=== PATIENT | male | born 1990 | race Hispanic/Latino ===

== ENCOUNTER 2019-09-29 14:32 | Emergency (ER) | payer MEDICAID, OTHER ==
[2019-09-29 15:42] LABS: BASOPHILS % (AUTO) 0.5 % (0.0-5.0); HEMATOCRIT 47.2 % (42-54); LYMPHOCYTES % (AUTO) 19.4 % (21.0-51.0); MEAN CORPUSCULAR HEMOGLOBIN 28.8 pg (27.0-33.0); MEAN CORPUSCULAR HGB CONC 34.5 g/dL (32.0-36.0); MEAN CORPUSCULAR VOLUME 83.5 fL (79-99); NEUTROPHILS % (AUTO) 71.7 % (40.0-77.0); PLATELET COUNT (AUTO) 301 K/uL (130-400); RED BLOOD CELL COUNT(AUTO) 5.65 MIL/uL (4.50-6.20); RED CELL DISTRIBUTION WIDTH 12.3 % (11.0-15.5); WHITE BLOOD COUNT (AUTO) 10.9 K/uL (4.8-10.8)
[2019-09-29 15:45] LABS: POTASSIUM 4.1 mmol/L (3.5-5.1)
[2019-09-29 15:50] LABS: ALBUMIN 4.2 g/dL (3.5-5.0); BILIRUBIN,TOTAL 0.5 mg/dL (0.2-1.0); TOTAL PROTEIN, SERUM 8.2 g/dL (6.0-8.3)
[2019-09-29 16:25] LABS: APPEARANCE,URINE Clear (CLEAR); BILIRUBIN,URINE Negative (NEGATIVE); COLOR,URINE Yellow (YELLOW); GLUCOSE, URINE (UA) Negative (NEGATIVE); KETONES,URINE Negative (NEGATIVE); LEUKOCYTE ESTERASE ,URINE Negative (NEGATIVE); NITRATE,URINE Negative (NEGATIVE); OCCULT BLOOD,URINE Negative (NEGATIVE); PROTEIN,URINE Negative (NEGATIVE); UROBILINOGEN,URINE 0.2 mg/dL (0.2-1.0)
[2019-09-29 16:32] LABS: AMPHET/METH SCREEN,URINE NEGATIVE (NEGATIVE); BARBITURATE SCREEN, URINE NEGATIVE (NEGATIVE); BENZODIAZEPINES SCREEN,URINE NEGATIVE (NEGATIVE); CANNABINOID SCREEN,URINE NEGATIVE (NEGATIVE); COCAINE SCREEN,URINE NEGATIVE (NEGATIVE); OPIATE SCREEN,URINE NEGATIVE (NEGATIVE); PHENCYCLIDINE SCREEN,URINE NEGATIVE (NEGATIVE)
[2019-09-29] MEDS ORDERED: ONDANSETRON HCL 4 MG/2 ML VIAL ONE (16:35)
[2019-12-27] MEDS ORDERED: SERT25TA5 PO (18:28)
[2019-12-27] MEDS ORDERED: LISI-613 PO (18:28)
[2019-12-27] MEDS ORDERED: OMEP40CA13 PO (18:28)
[2019-12-27] MEDS ORDERED: PROP40TA7 PO (18:28)
[2019-12-27] MEDS ORDERED: ALPR0.5T8 PO (18:28)
[2019-12-27] MEDS ORDERED: ASPI-556 PO (18:28)
[2019-12-29] MEDS ORDERED: CLOP75TA14 PO (18:58)
== END 2019-09-29 18:32 | disposition home or self-care (01) ==
LOC: EDH 14:32
DX: R07.89 Other chest pain (principal); F41.1 Generalized anxiety disorder; I10 Essential (primary) hypertension; F41.9 Anxiety disorder, unspecified; Z87.891 Personal history of nicotine dependence; Z98.890 Other specified postprocedural states
CPT/HCPCS: 36415; 80053; 80305; 81003; 82550; 84484 ×2; 85025; 93005 ×2; 96374; 99285; J2405

== ENCOUNTER 2019-10-16 20:34 | Emergency (ER) | payer OTHER | END 2019-10-16 20:58 | disposition home or self-care (01) | LOC: EDH 20:34 | DX: S39.011A Strain of muscle, fascia and tendon of abdomen, initial encounter (principal); I10 Essential (primary) hypertension; F41.9 Anxiety disorder, unspecified; Z98.890 Other specified postprocedural states; X58.XXXA Exposure to other specified factors, initial encounter; Y93.89 Activity, other specified; Y92.89 Other specified places as the place of occurrence of the external cause; Y99.8 Other external cause status | CPT/HCPCS: 99282 ==

== ENCOUNTER 2019-12-17 06:54 | Emergency (ER) | payer OTHER ==
[2019-12-17] MEDS ORDERED: ASPIRIN 325 MG TABLET ONE (07:14)
== END 2019-12-17 09:53 | disposition home or self-care (01) ==
LOC: EDH 06:54
DX: M79.642 Pain in left hand (principal); R07.89 Other chest pain; Z20.828 Contact with and (suspected) exposure to other viral communicable diseases; I10 Essential (primary) hypertension; F41.9 Anxiety disorder, unspecified
CPT/HCPCS: 36415; 71045; 80053; 80305; 81001; 82550; 82728; 83605; 84145; 84484; 85025; 85378; 85610; 85730; 86140; 87088; 87804 ×2; 87880; 93005; 99285; U0003

== ENCOUNTER 2019-12-21 15:32 | Emergency (ER) | payer OTHER ==
[2019-12-21 17:05] LABS: BASOPHILS % (AUTO) 0.3 % (0.0-5.0); EOSINOPHILS % (AUTO) 0.6 % (0.0-8.0); HEMATOCRIT 42.3 % (42-54); LYMPHOCYTES % (AUTO) 17.3 % (21.0-51.0); MEAN CORPUSCULAR HEMOGLOBIN 28.5 pg (27.0-33.0); MEAN CORPUSCULAR VOLUME 83.8 fL (79-99); MONOCYTES % (AUTO) 6.8 % (3.0-13.0); NEUTROPHILS % (AUTO) 74.7 % (40.0-77.0); PLATELET COUNT (AUTO) 322 K/uL (130-400); RED BLOOD CELL COUNT(AUTO) 5.05 MIL/uL (4.50-6.20); RED CELL DISTRIBUTION WIDTH 12.8 % (11.0-15.5); WHITE BLOOD COUNT (AUTO) 12.1 K/uL (4.8-10.8)
[2019-12-21 17:24] LABS: POTASSIUM 3.8 mmol/L (3.5-5.1)
[2019-12-27] MEDS ORDERED: ASPI-556 PO (18:28)
[2019-12-27] MEDS ORDERED: PROP40TA7 PO (18:28)
[2019-12-27] MEDS ORDERED: ALPR0.5T8 PO (18:28)
[2019-12-27] MEDS ORDERED: OMEP40CA13 PO (18:28)
[2019-12-27] MEDS ORDERED: SERT25TA5 PO (18:28)
[2019-12-27] MEDS ORDERED: LISI-613 PO (18:28)
[2019-12-29] MEDS ORDERED: CLOP75TA14 PO (18:58)
== END 2019-12-21 18:05 | disposition home or self-care (01) ==
LOC: EDH 15:32
DX: R07.89 Other chest pain (principal); E11.9 Type 2 diabetes mellitus without complications; I10 Essential (primary) hypertension; Z87.891 Personal history of nicotine dependence
CPT/HCPCS: 36415; 80048; 84484; 85025; 93005

== ENCOUNTER 2019-12-25 11:34 | Emergency (ER) | payer OTHER ==
[2019-12-25] MEDS ORDERED: ASPIRIN 325 MG TABLET ONE (12:37)
[2019-12-25] MEDS ORDERED: ONDANSETRON HCL 4 MG/2 ML VIAL ONE (12:37)
== END 2019-12-25 14:00 | disposition home or self-care (01) ==
LOC: EDH 11:34
DX: F41.9 Anxiety disorder, unspecified (principal); R07.89 Other chest pain; I10 Essential (primary) hypertension
CPT/HCPCS: 36415; 71045; 80048; 80305; 81001; 83690; 84484; 85025; 93005; 96374; 99285; J2405

== ENCOUNTER 2019-12-26 10:06 | Inpatient (IN) | payer OTHER ==
[~2019-12-26] VITALS: Ht 180.3 cm; Wt 149.0 kg
[2019-12-26] MEDS ORDERED: IOHEXOL 350 MG/ML 100ML INFUS..BTL IV ONE (10:46)
[2019-12-26] MEDS ORDERED: ASPIRIN 325 MG TABLET ONE (11:19)
[2019-12-26] MEDS ORDERED: SODIUM CHLORIDE 0.9% 1000ML 1,000 ML IV ONE (11:20)
[2019-12-26 11:46] LABS: BASOPHILS % (AUTO) 0.4 % (0.0-5.0); EOSINOPHILS % (AUTO) 0.5 % (0.0-8.0); HEMATOCRIT 43.4 % (42-54); LYMPHOCYTES % (AUTO) 18.9 % (21.0-51.0); MEAN CORPUSCULAR HGB CONC 34.8 g/dL (32.0-36.0); MEAN CORPUSCULAR VOLUME 83.3 fL (79-99); MONOCYTES % (AUTO) 6.4 % (3.0-13.0); NEUTROPHILS % (AUTO) 73.4 % (40.0-77.0); PLATELET COUNT (AUTO) 302 K/uL (130-400); RED BLOOD CELL COUNT(AUTO) 5.21 MIL/uL (4.50-6.20); RED CELL DISTRIBUTION WIDTH 12.5 % (11.0-15.5); WHITE BLOOD COUNT (AUTO) 9.7 K/uL (4.8-10.8)
[2019-12-26 11:52] LABS: POTASSIUM 4.1 mmol/L (3.5-5.1)
[2019-12-26 11:56] LABS: ALBUMIN 4.2 g/dL (3.5-5.0); BILIRUBIN,TOTAL 0.5 mg/dL (0.2-1.0); TOTAL PROTEIN, SERUM 7.8 g/dL (6.0-8.3)
[2019-12-26 12:21] LABS: INR 0.99 (0.85-1.15); PARTIAL THROMBOPLASTIN TIME 30.6 SEC (26.3-35.5); PROTHROMBIN TIME 10.7 SEC (9.6-11.6)
[2019-12-26] MEDS ORDERED: ONDANSETRON HCL 4 MG/2 ML VIAL IVP PRN (15:45)
[2019-12-26] MEDS ORDERED: ACETAMINOPHEN 325 MG TAB PO PRN (15:45)
--- NOTE | 2019-12-26 18:30 | NUR ---
REPORT RECEIVED FROM GEENA RN (ER). PATIENT ADMITTED FOR POSSIBLE CVA DUE TO C/O CHEST PAIN, LEFT FACIAL, LEFT LEG AND LEFT ARM WEAKNESS. SOC DONE WITH RECOMMENDATIONS OF MRI OF THE BRAIN. MRI RESULTS NEGATIVE. NO CONSULTS, NEEDS SPEECH EVAL. PATIENT STABLE AT THIS TIME.
[2019-12-26 20:00] VITALS: BP 148/86
[2019-12-27 03:53] LABS: HEMOGLOBIN A1C 6.1 % (4.0-6.0)
--- NOTE | 2019-12-27 03:58 | NUR ---
PAGED MOISÉS CRAWFORD ABOUT PATIENT'S CHEST PAIN ON THE LEFT SIDE. PENDING CALL BACK.
[2019-12-27 04:00] VITALS: BP 113/62
[2019-12-27 04:07] LABS: BASOPHILS % (AUTO) 0.4 % (0.0-5.0); EOSINOPHILS % (AUTO) 1.5 % (0.0-8.0); HEMATOCRIT 40.1 % (42-54); LYMPHOCYTES % (AUTO) 32.3 % (21.0-51.0); MEAN CORPUSCULAR HEMOGLOBIN 28.7 pg (27.0-33.0); MEAN CORPUSCULAR HGB CONC 33.9 g/dL (32.0-36.0); MEAN CORPUSCULAR VOLUME 84.6 fL (79-99); MONOCYTES % (AUTO) 6.8 % (3.0-13.0); NEUTROPHILS % (AUTO) 58.7 % (40.0-77.0); PLATELET COUNT (AUTO) 279 K/uL (130-400); RED BLOOD CELL COUNT(AUTO) 4.74 MIL/uL (4.50-6.20); RED CELL DISTRIBUTION WIDTH 12.8 % (11.0-15.5); WHITE BLOOD COUNT (AUTO) 9.5 K/uL (4.8-10.8)
[2019-12-27 04:15] LABS: POTASSIUM 4.1 mmol/L (3.5-5.1)
[2019-12-27 04:19] LABS: ALBUMIN 3.8 g/dL (3.5-5.0); BILIRUBIN,TOTAL 0.5 mg/dL (0.2-1.0); TOTAL PROTEIN, SERUM 7.1 g/dL (6.0-8.3)
[2019-12-27] MEDS ORDERED: NITROGLYCERIN 1GM/1 INCH PACKET TD ONE (04:21)
[2019-12-27] MEDS ORDERED: NITROGLYCERIN 1GM/1 INCH PACKET TD SCH (04:30)
[2019-12-27 04:45] LABS: CREATINE KINASE, TOTAL 125 U/L (21-232); MYOGLOBIN 35 ng/mL (10-92); TROPONIN I < 0.04 ng/mL (0.00-0.06)
[2019-12-27] MEDS: NITROGLYCERIN 1GM/1 INCH PACKET TD SCH ×3 (06:00→19:24)
[2019-12-27] MEDS: ACETAMINOPHEN 325 MG TAB PO PRN ×2 (06:10→15:10)
[2019-12-27 07:44] LABS: INR 1.03 (0.85-1.15); PARTIAL THROMBOPLASTIN TIME 30.1 SEC (26.3-35.5); PROTHROMBIN TIME 11.1 SEC (9.6-11.6)
[2019-12-27 08:00] VITALS: BP 110/62
[2019-12-27] MEDS: ASPIRIN 81MG TAB.CHEW PO SCH (08:53)
[2019-12-27] MEDS: CLOPIDOGREL BISULFATE 75 MG TAB PO SCH (08:53)
[2019-12-27] MEDS: ENOXAPARIN SODIUM 40 MG/0.4 ML SYRINGE SQ SCH (08:54)
[2019-12-27 12:00] VITALS: BP 139/77
[2019-12-27 16:00] VITALS: BP 131/75
[2019-12-27] MEDS ORDERED: LISI-613 PO ×2 (18:28)
[2019-12-27] MEDS ORDERED: ALPR0.5T8 PO ×2 (18:28)
[2019-12-27] MEDS ORDERED: ASPI-556 PO ×2 (18:28)
[2019-12-27] MEDS ORDERED: PROP40TA7 PO ×2 (18:28)
[2019-12-27] MEDS ORDERED: SERT25TA5 PO ×2 (18:28)
[2019-12-27] MEDS ORDERED: OMEP40CA13 PO ×2 (18:28)
[2019-12-27] MEDS ORDERED: SIMETHICONE 80 MG TAB.CHEW PO PRN (18:30)
--- NOTE | 2019-12-27 18:46 | NUR ---
cm note met with patient and states resides at home with common law spouse, malinda. independent with adls/ambulation, no dme. dc plan is back to home at time of dc. states no dc needs. Addendum: 12/27/19 at 1849 by SADIE WORKMAN CM Amended: Links added.
[2019-12-27 19:40] VITALS: BP 141/83
[2019-12-27 23:27] VITALS: BP 139/79
[2019-12-28] MEDS: NITROGLYCERIN 1GM/1 INCH PACKET TD SCH ×3 (03:23→21:25)
[2019-12-28 03:30] VITALS: BP 142/88
[2019-12-28 03:59] LABS: BASOPHILS % (AUTO) 0.5 % (0.0-5.0); HEMATOCRIT 38.8 % (42-54); LYMPHOCYTES % (AUTO) 31.7 % (21.0-51.0); MEAN CORPUSCULAR HEMOGLOBIN 28.6 pg (27.0-33.0); MONOCYTES % (AUTO) 9.2 % (3.0-13.0); PLATELET COUNT (AUTO) 258 K/uL (130-400); RED BLOOD CELL COUNT(AUTO) 4.62 MIL/uL (4.50-6.20); RED CELL DISTRIBUTION WIDTH 12.9 % (11.0-15.5); WHITE BLOOD COUNT (AUTO) 9.7 K/uL (4.8-10.8)
[2019-12-28 04:14] LABS: CREATININE 1.1 mg/dL (0.5-1.5)
--- NOTE | 2019-12-28 06:36 | NUR ---
INFORMED N[employer] UTILITIES ENGINEER ABOUT PATIENT'S RECURRENT CHEST PAINS. HE ORDERED ANOTHER TROPONIN LEVEL THIS MORNING AND CBC/CMP FOR TOMORROW.
[2019-12-28 07:55] VITALS: BP 112/61
[2019-12-28] MEDS: CLOPIDOGREL BISULFATE 75 MG TAB PO SCH (08:57)
[2019-12-28] MEDS: ASPIRIN 81MG TAB.CHEW PO SCH (08:57)
[2019-12-28] MEDS: ENOXAPARIN SODIUM 40 MG/0.4 ML SYRINGE SQ SCH (08:59)
--- NOTE | 2019-12-28 10:00 | NUR ---
DYSPHAGIA EVAL COMPLETED. -S/S OF ASPIRATION. REGULAR TEXTURE, THIN LIQUIDS; PILLS WHOLE WITH LIQUIDS. Addendum: 12/28/19 at 1445 by NORI IZQUIERDO, [facility] Amended: Links added.
--- NOTE | 2019-12-28 10:20 | NUR ---
COGNITIVE-LINGUISTIC EVALUATION. WITHIN FUNCTIONAL LIMITS. EVALUATION: Pt AAOX3. Pt REQUESTS WANTS AND NEEDS INDEPENDENTLY. Pt INTELLIGIBLE AT 100% ACCURACY TO THE UNFAMILIAR LISTENER. Pt COMMUNICATING AT CONVERSATIONAL LEVEL WITH NO DEFICITS IDENTIFIED AT THIS TIME. Pt COMPLETED COGNITIVE-LINGUISTIC EVALUATION TARGETING: ORIENTATION, ATTENTION/CONCENTRATION, MEMORY (IMMEDIATE, SHORT-TERM AND LONG-TERM), PROBLEM SOLVING, LOGIC/REASONING/INFERENCE, THOUGHT ORGANIZATION, FUNCTIONAL MATH AND TELLING TIME. Pt ABLE TO COMPLETE TASKS WITH CORRECT AND TIMELY ANSWERS TO ALL SECTIONS. G-CODES SPOKEN LANGUAGE EXPRESSION: [id number] Addendum: 12/28/19 at 1448 by NORI IZQUIERDO [facility] Amended: Links added.
[2019-12-28 11:15] LABS: APPEARANCE,URINE Clear (CLEAR); BILIRUBIN,URINE Negative (NEGATIVE); COLOR,URINE Yellow (YELLOW); GLUCOSE, URINE (UA) Negative (NEGATIVE); KETONES,URINE Negative (NEGATIVE); LEUKOCYTE ESTERASE ,URINE Negative (NEGATIVE); NITRATE,URINE Negative (NEGATIVE); OCCULT BLOOD,URINE Negative (NEGATIVE); PH,URINE 5.5 (5.0-8.0); PROTEIN,URINE Negative (NEGATIVE)
[2019-12-28 11:23] LABS: AMPHET/METH SCREEN,URINE NEGATIVE (NEGATIVE); BARBITURATE SCREEN, URINE NEGATIVE (NEGATIVE); BENZODIAZEPINES SCREEN,URINE NEGATIVE (NEGATIVE); CANNABINOID SCREEN,URINE NEGATIVE (NEGATIVE); COCAINE SCREEN,URINE NEGATIVE (NEGATIVE); OPIATE SCREEN,URINE NEGATIVE (NEGATIVE); PHENCYCLIDINE SCREEN,URINE NEGATIVE (NEGATIVE)
[2019-12-28 11:37] VITALS: BP 116/63
--- NOTE | 2019-12-28 13:20 | NUR ---
2D-Echo Pending results spoke w/[employer] biometric fingerprinting technician. states Wesley has already notified [employer]line Reservation Agent aviation manager to read echo test.
--- NOTE | 2019-12-28 13:45 | NUR ---
SPOKE WITH DR. PIRES RE; 2D-ECHO PENDING STATES I HAVE CONSULTS AT THIS TIME, I WILL GLADLY READ IT LATER TODAY.
[2019-12-28 15:57] VITALS: BP 109/78
[2019-12-28 20:02] VITALS: BP 131/67
[2019-12-28] MEDS: ACETAMINOPHEN 325 MG TAB PO PRN (21:28)
[2019-12-28 23:16] VITALS: BP 122/65
[2019-12-29 04:13] VITALS: BP 126/73
[2019-12-29] MEDS: NITROGLYCERIN 1GM/1 INCH PACKET TD SCH ×2 (05:16→13:29)
[2019-12-29 05:58] LABS: BASOPHILS % (AUTO) 0.5 % (0.0-5.0); EOSINOPHILS % (AUTO) 2.2 % (0.0-8.0); HEMATOCRIT 39.7 % (42-54); LYMPHOCYTES % (AUTO) 28.6 % (21.0-51.0); MEAN CORPUSCULAR HEMOGLOBIN 29.1 pg (27.0-33.0); MEAN CORPUSCULAR VOLUME 85.6 fL (79-99); MONOCYTES % (AUTO) 9.1 % (3.0-13.0); NEUTROPHILS % (AUTO) 59.1 % (40.0-77.0); PLATELET COUNT (AUTO) 183 K/uL (130-400); RED BLOOD CELL COUNT(AUTO) 4.64 MIL/uL (4.50-6.20); RED CELL DISTRIBUTION WIDTH 12.9 % (11.0-15.5); WHITE BLOOD COUNT (AUTO) 8.2 K/uL (4.8-10.8)
[2019-12-29 06:28] LABS: POTASSIUM 4.6 mmol/L (3.5-5.1)
[2019-12-29 08:00] VITALS: BP 121/83
[2019-12-29] MEDS: CLOPIDOGREL BISULFATE 75 MG TAB PO SCH (08:19)
[2019-12-29] MEDS: ASPIRIN 81MG TAB.CHEW PO SCH (08:19)
[2019-12-29] MEDS: ENOXAPARIN SODIUM 40 MG/0.4 ML SYRINGE SQ SCH (08:20)
[2019-12-29 12:00] VITALS: BP 133/67
[2019-12-29 16:00] VITALS: BP 122/69
--- NOTE | 2019-12-29 16:03 | NUR ---
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 Pt also pending stress test (out pt as per Patient) and cardiac evaluation. RD provided nutritional handouts for Pt review. RD had long discussion with Pt about lifestyle, diet and strength training history. Pt also with physical PTSD as per Pt. RD encouraged Pt to notify as nutritional concerns arise. RD to follow up.
[2019-12-29] MEDS: ACETAMINOPHEN 325 MG TAB PO PRN (18:01)
[2019-12-29] MEDS ORDERED: CLOP75TA14 PO ×2 (18:58)
[2019-12-29 20:00] VITALS: BP 121/64
--- NOTE | 2019-12-29 20:30 | NUR ---
discharge PATIENT WAS DISCHARGED HOME VIA PRIVATE CAR. PATIENT ASSISTED DOWNSTAIRS VIA WHEEL CHAIR WITH ALL BELONGINGS AND DISCHARGE PAPERWORK AND PRESCRIPTIONS. ALL QUESTIONS AND CONCERNS ADDRESSED TELE MONITOR AND IV REMOVED.
== END 2019-12-29 20:37 | disposition home health service (06) | DRG 65 ==
LOC: EDH 10:06 → EDHIP 14:50 → 3AH 18:27
PROVIDERS: ADMIT Hospitalist; ATTEND Hospitalist
DX: I63.9 Cerebral infarction, unspecified (principal); Z68.42 Body mass index [BMI] 45.0-49.9, adult; I10 Essential (primary) hypertension; E66.01 Morbid (severe) obesity due to excess calories; F41.0 Panic disorder [episodic paroxysmal anxiety]; K21.9 Gastro-esophageal reflux disease without esophagitis; F41.9 Anxiety disorder, unspecified; F12.90 Cannabis use, unspecified, uncomplicated; Z79.02 Long term (current) use of antithrombotics/antiplatelets; Z87.891 Personal history of nicotine dependence
CPT/HCPCS: 36415; 70450; 70496; 70498; 70551; 71045; 80048; 80053; 80061; 80305; 81003; 82550; 83036; 83874; 84484; 85025; 85610; 85730; 92522; 92610; 93005; 93356; 93880; C8929; G0378; J1650; J7030; Q9967